=== PATIENT | female | born 1980 ===

== ENCOUNTER 2017-09-16 11:16 | Emergency (ER) | payer OTHER ==
[2017-09-16 12:32] VITALS: BMI 25.0
--- NOTE | 2017-09-16 13:26 | PDOC ---
History of Present Illness <Dani Harrell - Last Filed: 09/16/17 15:17> - History of Present Illness Initial Comments: 09/16/17 13:45 The patient is a 37 year old female, with significant PMH ovarian cysts, who presents to the emergency department for evaluation of vaginal bleed which began 10 days ago. Patient noticed spotting at first but recently has been experiencing heavier bleeding, using 2 to 3 pads a day. Denies clots. Pt denies abd pain/pelvic pain . Patient mentioned she was diagnosed last year in December with bilateral ovarian cysts after having intermittent back pain accompanied with a feeling of lower abdominal heaviness. Pt has report from US done 08/30 that shows 16cm L sided ovarian cyst, and 2cm ovarian cysts on the R. The patient states her last visit to the MEDIATOR (Dr. Jodi Looney) was last week for follow up on her ovarian cysts. Patient also states her last menstrual cycle was July 15. Does not believe she is as she uses condoms. Denies dizziness. The patient denies chest pain, shortness of breath. Denies fever, chills, nausea, vomit, diarrhea and constipation. Denies dysuria, frequency, urgency. Allergies: NKDA Past surgical history: Ovarian Cystectomy Social history: None reported PCP:None reported <Pratibha Whittaker - Last Filed: 09/16/17 15:57> - General Chief Complaint: Vaginal Bleeding Stated Complaint: VAG. BLEEDING Time Seen by Provider: 09/16/17 11:41 Past History <Dani Harrell - Last Filed: 09/16/17 15:17> - Past Medical History COPD: No - Suicide/Smoking/Psychosocial Hx Smoking History: Never smoked Have you smoked in the past 12 months: No Information on smoking cessation initiated: No Hx Alcohol Use: No Drug/Substance Use Hx: No Substance Use Type: None <Pratibha Whittaker - Last Filed: 09/16/17 15:57> - Past Medical History Allergies/Adverse Reactions: Allergies Allergy/AdvReac Type Severity Reaction Status Date / Time No Known Allergies Allergy Verified 09/16/17 12:05 Review of Systems - Review of Systems Comments:: 09/16/17 14:24 GENERAL/CONSTITUTIONAL: No fever or chills. No weakness. HEAD, EYES, EARS, NOSE AND THROAT: No change in vision. No ear pain or discharge. No sore throat. GASTROINTESTINAL: No nausea, vomiting, diarrhea or constipation. GENITOURINARY:+Vaginal Bleed. No dysuria, frequency, or change in urination. CARDIOVASCULAR: No chest pain or shortness of breath. RESPIRATORY: No cough, wheezing, or hemoptysis. MUSCULOSKELETAL: No joint or muscle swelling or pain. No neck or back pain. SKIN: No rash NEUROLOGIC: No loss of consciousess, or change in strength/sensation. ENDOCRINE: No increased thirst. No abnormal weight change. HEMATOLOGIC/LYMPHATIC: No anemia, easy bleeding, or history of blood clots. ALLERGIC/IMMUNOLOGIC: No hives or skin allergy. <Pratibha Whittaker - Last Filed: 09/16/17 15:57> *Physical Exam - Vital Signs Last Vital Signs Temp Pulse Resp BP Pulse Ox 98.7 F 60 16 123/78 100 09/16/17 11:25 09/16/17 11:25 09/16/17 11:25 09/16/17 11:25 09/16/17 11:25 <Dani Harrell - Last Filed: 09/16/17 15:17> - Vital Signs Last Vital Signs Temp Pulse Resp BP Pulse Ox 98.7 F 60 16 123/78 100 09/16/17 11:25 09/16/17 11:25 09/16/17 11:25 09/16/17 11:25 09/16/17 11:25 - Physical Exam Comments: 09/16/17 14:25 GENERAL: Awake, alert, and fully oriented, in no acute distress EYES: PERRLA, EOMI, sclera anicteric, conjunctiva clear ENT: Oropharynx clear without exudates. Moist mucosa LUNGS: Breath sounds equal, clear to auscultation bilaterally. No wheezes, and no crackles HEART: Regular rate and rhythm, normal S1 and S2, no murmurs, rubs or gallops ABDOMEN: Soft, nontender, normoactive bowel sounds. No guarding, no rebound. No masses : Normal external genitalia, +dark red blood in vault with no active bleeding from cervix. Os closed. Mild R adnexal ttp, no midline or L adnexal ttp. No CMT EXTREMITIES: Normal range of motion, no edema. No clubbing or cyanosis. No cords, erythema, or tenderness NEUROLOGICAL: Normal speech, cranial nerves intact, 5/5 strength in all 4 extremities, normal sensation to light touch in all 4 extremities, normal gait SKIN: Warm, Dry, normal turgor, no rashes or lesions noted. <Pratibha Whittaker - Last Filed: 09/16/17 15:57> ED Treatment Course - LABORATORY CBC & Chemistry Diagram: 09/16/17 01:24 09/16/17 01:24 - ADDITIONAL ORDERS Additional order review: Laboratory Results 09/16/17 09/16/17 09/16/17 13:55 01:24 01:24 Sodium 141 Potassium 4.1 Chloride 108 H Carbon Dioxide 27 Anion Gap 6 L BUN 12 Creatinine 0.6 Creat Clearance w eGFR > 60 Random Glucose 84 Calcium 9.1 Total Bilirubin 0.4 AST 15 ALT 16 Alkaline Phosphatase 59 Total Protein 7.1 Albumin 3.8 Urine HCG, Qual Negative Blood Type O POSITIVE Antibody Screen Negative 09/16/17 01:24 RBC 4.18 MCV 91.3 MCHC 33.3 RDW 12.9 MPV 9.6 Neutrophils % 70.4 Lymphocytes % 20.0 Monocytes % 7.8 Eosinophils % 1.2 Basophils % 0.6 <Dani Harrell - Last Filed: 09/16/17 15:17> - LABORATORY CBC & Chemistry Diagram: 09/16/17 01:24 09/16/17 01:24 <Pratibha Whittaker - Last Filed: 09/16/17 15:57> Medical Decision Making - Medical Decision Making 09/16/17 15:18 Dr. Whittaker discussed patient's case with Dr. Looney on the phone <Dani Harrell - Last Filed: 09/16/17 15:17> - Medical Decision Making 09/16/17 14:29 37yo F with hx ovarian cysts presents to the ED with 10 days of vaginal bleeding. Vitals wnl. Exam with mild L adnexal ttp. Likely DUB, however will check UPT and TVUS in light of known large L adnexal cyst. Will also check labs to make sure pt is not anemic. 09/16/17 15:48 Labs wnl TVUS with persistent large L sided ovarian cyst, a bit smaller today @ 14cms. Pt continues to report no pain Mild period like bleeding while in the ED Case discussed with her MEDIATOR Dr. Looney, who recommends that if pt is not heavily bleeding or in severe pain, she will need outpt f/u for surgical removal of cyst Pt aware that she needs surgery and has appt scheduled for 09/26 Advised pt to try to get appointment pushed up to the next week Also instructed pt to seek medical attention immediately if she has sudden severe lower abd pain, jan on the L side where her large cyst in Also instructed pt to seek medical attention immediately if she soaks more than 2 pads/hr for greater than 2 hrs Pt expresses understanding Requests DC home I discussed the physical exam findings, ancillary test results and final diagnoses with the patient. I answered all of the patient's questions. The patient was satisfied with the care received and felt comfortable with the discharge plan and treatment plan. The patient will call their primary care physician within 24 hours to arrange follow-up and will return to the Emergency Department with any new, persistent or worsening symptoms. <Pratibha Whittaker - Last Filed: 09/16/17 15:57> *DC/Admit/Observation/Transfer <Dani Harrell - Last Filed: 09/16/17 15:17> - Discharge Dispostion Decision to Admit order: No - Attestations Physician Attestion: 09/16/17 15:57 I, Dr. Pratibha Whittaker MD, attest that this document has been prepared under my direction and personally reviewed by me in its entirety. I further attest, that it accurately reflects all work, treatment, procedures and medical decision -making performed by me. <Pratibha Whittaker - Last Filed: 09/16/17 15:57> Diagnosis at time of Disposition: Vaginal bleeding, abnormal, Ovarian cyst - Discharge Dispostion Disposition: HOME Condition at time of disposition: Stable - Patient Instructions Printed Discharge Instructions: DI for Vaginal Bleeding Additional Instructions: Follow up with your MEDIATOR doctor within 1 week. Try to have your appointment that you have scheduled for 09/26 pushed up sooner. Seek medical attention immediately if you have any sudden lower abdominal pain, especially on the left as this may be ovarian torsion. Ovarian torsion is a very dangerous condition that could result in the loss of your ovary and infertility. Also, seek medical attention if your soak through more than 2 pads per hour for greater than 2 hours Return to the emergency department if you have any new, worsening, or concerning symptoms.
[2017-09-16 13:33] LABS: BASO % 0.6 % (0-2.0); EOS % 1.2 % (0-4.5); HEMATOCRIT 38.1 % (32.4-45.2); HEMOGLOBIN 12.7 GM/dL (10.7-15.3); MCH 30.4 pg (25.7-33.7); MCHC 33.3 g/dl (32.0-36.0); MEAN CELL VOLUME 91.3 fl (80-96); MEAN PLT VOLUME 9.6 fl (7.5-11.1); MONO % 7.8 % (3.8-10.2); NEUT % 70.4 % (42.8-82.8); PLATELET COUNT 185 K/MM3 (134-434); RBC 4.18 M/mm3 (3.60-5.2); RDW 12.9 % (11.6-15.6); WHITE BLOOD COUNT 5.9 K/mm3 (4.0-10.0)
[2017-09-16 13:57] LABS: ALBUMIN 3.8 g/dl (3.4-5.0); ALK PHOS 59 U/L (45-117); ANION GAP 6 (8-16); BILIRUBIN,TOTAL 0.4 mg/dL (0.2-1.0); BLOOD UREA NITROGEN 12 mg/dL (7-18); CALCIUM 9.1 mg/dL (8.5-10.1); CHLORIDE 108 mmol/L (98-107); CO2 27 mmol/L (21-32); CREATININE 0.6 mg/dL (0.55-1.02); GLUCOSE,RANDOM 84 mg/dL (74-106); POTASSIUM 4.1 mmol/L (3.5-5.1); SGOT/AST 15 U/L (15-37); SGPT/ALT 16 U/L (12-78); SODIUM 141 mmol/L (136-145); TOT PROT 7.1 g/dl (6.4-8.2)
[2017-09-16 17:04] VITALS: BP 124/78; PULSE 71; TEMP 98.4
== END 2017-09-16 17:00 | disposition home or self-care (01) ==
LOC: JER 11:16
DX: N93.8 Other specified abnormal uterine and vaginal bleeding (principal); N83.202 Unspecified ovarian cyst, left side; N83.201 Unspecified ovarian cyst, right side
CPT/HCPCS: 36415; 76830-TC; 80053; 84703; 85025; 86850; 86900; 86901; 99282-25

== ENCOUNTER 2017-10-18 05:14 | Day surgery (SDC) | payer OTHER ==
[2017-10-16 15:08] VITALS: BMI 25.2
[2017-10-18] MEDS ORDERED: ePHEDrine SULFATE 50 MG/1 ML AMPULE ONE (07:20)
[2017-10-18] MEDS ORDERED: fentaNYL CITRATE 250 MCG/5 ML VIAL ONE (07:20)
[2017-10-18] MEDS ORDERED: MIDAZOLAM HCL 2 MG/2 ML SINGLE DOSE VIAL ONE (07:21)
[2017-10-18] MEDS ORDERED: PROPOFOL 20 ML ONE ×4 (07:21)
[2017-10-18] MEDS ORDERED: SUCCINYLCHOLINE CHLORIDE 200 MG/10 ML VIAL ONE (07:21)
[2017-10-18] MEDS ORDERED: ROCURONIUM BROMIDE 50 MG/5 ML VIAL ONE (07:23)
[2017-10-18] MEDS ORDERED: ceFAZolin SODIUM 1 GM VIAL ONE (07:26)
[2017-10-18] MEDS ORDERED: DEXAMETHASONE SOD PHOSPHATE 4 MG/1 ML VIAL ONE (07:26)
[2017-10-18] MEDS ORDERED: KETOROLAC TROMETHAMINE 30 MG/1 ML VIAL ONE (07:26)
[2017-10-18] MEDS ORDERED: BUPIVACAINE HCL/PF 0.25% (2.5MG/ML) 10 ML VIAL ONE (07:47)
[2017-10-18] MEDS ORDERED: IBUPROFEN 600 MG TABLET (FP) PO PRN (07:58)
[2017-10-18] MEDS ORDERED: ACETAMINOPHEN 325 MG TABLET (FP) PO PRN (07:58)
--- NOTE | 2017-10-18 07:58 | HP ---
History & Physical Update - History History: No Change - Physical Physical: No Change - Assessment Assessment: No Change - Plan Plan: No Change (No change in HP)
[2017-10-18] MEDS ORDERED: LACTATED RINGERS SOLUTION 1,000 ML IV SCH (08:00)
[2017-10-18] MEDS ORDERED: ceFAZolin SODIUM 1 GM VIAL IVPB ONE (08:15)
[2017-10-18] MEDS ORDERED: MICROFIBRILLAR COLLAGEN 1 GM EACH ONE (09:23)
[2017-10-18] MEDS ORDERED: MICROFIBRILLAR COLLAGEN 1 GM EACH NR ONE (09:27)
--- NOTE | 2017-10-18 10:09 | OP ---
Operative Note - Note: Operative Date: 10/18/17 Pre-Operative Diagnosis: Left ovarian Cyst. Abdoman Pain Operation: Laparoscopic Ovarian Cystectomy. 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 16 cm ovarian cyst with 1500 cc clear fluid. ca 125 normal preop. enterolysis performed omentum stuck to abdominal wll Estimated Blood Loss (mls): 100 Operative Report Dictated: Yes
[2017-10-18] MEDS ORDERED: ONDANSETRON 4 MG/2 ML VIAL IVPUSH ONE (10:30)
[2017-10-18] MEDS ORDERED: ONDANSETRON 4 MG/2 ML VIAL ONE (10:40)
--- NOTE | 2017-10-18 10:45 | SURG ---
Surgery Operations Administrative Assistant Note Operations Administrative Assistant: Deanna Carr PA-C Date of Service: 10/18/17 Diagnosis: Left ovarian Cyst. Abdoman Pain Procedure: Laparoscopic Ovarian Cystectomy. ENterolysis I was present for the entirety of the operative procedure. For further detail, please refer to operative report. Visit type - Case Type Case Type: Scheduled - Emergency Emergency Visit: No - New patient This patient is new to me today: Yes Date on this admission: 10/18/17
[2017-10-18 11:25] LABS: BASO % 0.2 % (0-2.0); EOS % 0.2 % (0-4.5); HEMOGLOBIN 10.9 GM/dL (10.7-15.3); LYMPH % 9.6 % (8-40); MCH 30.9 pg (25.7-33.7); MEAN CELL VOLUME 90.8 fl (80-96); MEAN PLT VOLUME 9.9 fl (7.5-11.1); MONO % 3.4 % (3.8-10.2); NEUT % 86.6 % (42.8-82.8); PLATELET COUNT 154 K/MM3 (134-434); RBC 3.53 M/mm3 (3.60-5.2); RDW 13.3 % (11.6-15.6); WHITE BLOOD COUNT 10.5 K/mm3 (4.0-10.0)
[2017-10-18] MEDS ORDERED: ONDANSETRON 4 MG/2 ML VIAL IVPUSH PRN (12:14)
[2017-10-18] MEDS ORDERED: oxyCODONE HCL 5 MG TABLET PO PRN ×2 (12:14)
[2017-10-18 12:39] VITALS: TEMP 98.1
[2017-10-18 14:33] LABS: BASO % 0.1 % (0-2.0); HEMATOCRIT 33.6 % (32.4-45.2); HEMOGLOBIN 11.2 GM/dL (10.7-15.3); LYMPH % 4.3 % (8-40); MCH 30.4 pg (25.7-33.7); MCHC 33.4 g/dl (32.0-36.0); MEAN PLT VOLUME 10.3 fl (7.5-11.1); MONO % 0.9 % (3.8-10.2); NEUT % 94.7 % (42.8-82.8); PLATELET COUNT 175 K/MM3 (134-434); RBC 3.69 M/mm3 (3.60-5.2); RDW 13.4 % (11.6-15.6); WHITE BLOOD COUNT 13.1 K/mm3 (4.0-10.0)
--- NOTE | 2017-10-18 14:40 | OP ---
DATE OF OPERATION: 10/18/2017 PREOPERATIVE DIAGNOSES: Left ovarian cyst and abdominal pain. OPERATION: Laparoscopic ovarian cystectomy and enterolysis with biopsy of left ovary submitted to Pathology. FINDINGS: Possibly a cystoadenoma, papillary serous neoplasia, not known to be borderline tumor or cancer; also, left ovarian cyst, about 16 cm with 1500 mL of fluid removed. POSTOPERATIVE DIAGNOSES: Left ovarian cyst and abdominal pain. SURGEON: Georgie Kendall MD SUPERVISOR ELECTRONICS INSPECTION: KIRILL Torres ANESTHESIA: General. ESTIMATED BLOOD LOSS: 100 mL PROCEDURE: Patient was taken to the operating room, placed in dorsal lithotomy position, prepped and draped in the usual sterile fashion. Mayo catheter was placed into the bladder. Attention was then drawn to the umbilicus where a 5-mm umbilical incision was made. Veress needle was inserted into the cavity. Approximately 3-4 L of CO2 was insufflated in the cavity. Veress needle was then removed, and a 5-mm trocar was then inserted. Laparoscope and camera attached. Visualization revealed a large, 16- to 17-cm left ovarian cyst. Two trocars were placed on the left and right side under direct visualization after incisions had been made, 5-mm incisions made, and 5-mm trocars were then inserted. The needle was then inserted into the left ovary, and approximately 1500 mL of fluid was removed. After fluid had been drained, the LigaSure was then used to cut the ovary, and the cyst wall was then removed using sharp and blunt technique and further cut with the EndoShears and submitted to Pathology. Another cyst was then entered at the bottom of the base of the left ovary near the uterus and found to have papillary material coming out of the cyst. Material was then submitted to Pathology to rule out ovarian cancer. 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 The ovary was removed from the portion of the cul-de-sac. That portion of the cul-de-sac was bleeding. EndoShears were then used to tamponade and coagulate that area. Surgicel was placed in the area to further stop bleeding as well as was also placed. Hemostasis was achieved. The specimens were removed using an 11-mm trocar. The trocar on the right was extended and an 11-mm trocar was then inserted and Endo Catch was used to remove all the specimen. Hemostasis was achieved after irrigation and suction had been done. All instruments were removed after the Boom-Collin was then used to close off the 11-mm port on the right side. Incisions were then all closed using 4-0 Biosyn suture in subcuticular fashion. Wound was washed and dressed. Mayo catheter was removed. Patient tolerated the procedure well and was taken to recovery room in stable condition. ESTIMATED BLOOD LOSS: 100 mL Fahad [id number]
[2017-10-18 15:02] VITALS: BP 114/66; PULSE 61
[2017-10-18 15:42] LABS: PLATELET ESTIMATE ADEQUATE
--- NOTE | 2017-10-19 17:21 | PATH ---
Surgical Pathology Report Patient Name: DARIO OSUNA [facility]. Rec. #: [id number] /Age/Gender: 1980 (Age: 37) / F Account: [id number] Location: AMBULATORY SURG Taken: 10/18/2017 Received: 10/18/2017 Reported: 10/19/2017 Physicians: Georgie Kendall M.D. Specimen(s) Received A: PORTION OF OVARY FOR FROZEN B: PORTION OF OVARY FOR FROZEN C: OVARIAN CYST Clinical History Ovarian cyst Intraoperative Consult Diagnosis A. Portion of ovary, frozen section: Serous papillary neoplasm with epithelial proliferation. Defer to permanent sections. B. Portion of ovary, frozen section: Serous papillary neoplasm with epithelial proliferation. Defer to permanent sections. Frank Mchugh M.D., 10/18/17 Final Diagnosis A-C. 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 Electronically Signed Selina Ramirez M.D. Gross Description A. Received fresh labeled "portion of ovarian cyst for frozen," is a 1.0 x 0.7 x 0.4 cm portion of walls soft tissue. The specimen is bisected and entirely submitted for frozen section. The frozen section residue is entirely submitted in one cassette. B. Received fresh labeled "portion of ovary for frozen," is a 3.0 x 1.0 x 0.3 cm aggregate of walls red soft tissue fragments. The specimen is entirely submitted for frozen section. The frozen section residue is entirely submitted in one cassette. C. Received fresh labeled "ovarian cyst," is a 7.0 x 3.2 x 2.0 cm focally disrupted cyst. The outer surface of the cyst is walls and smooth. There is no fluid present within the lumen. There is red serous fluid present within the container. The inner lining is walls-pink and smooth. No excrescences are identified. Tractor Operator Helper sections are submitted in 5 cassettes. /10/18/2017 [facility]10/18/2017
== END 2017-10-18 15:02 | disposition home or self-care (01) ==
LOC: JASUSAT 05:14
PROVIDERS: ATTEND Obstetrics & Gynecology
PROC: 0UB14ZZ Excision of Left Ovary, Percutaneous Endoscopic Approach (ICD-10-PCS; principal; 2017-10-18 07:30)
DX: N83.202 Unspecified ovarian cyst, left side (principal)
CPT/HCPCS: 36415; 84703; 85025; 88305-TC; 88331-TC; 94760

== ENCOUNTER → 2018-01-26 | Emergency (ER) | payer OTHER ==
[~2018-01-26] MED LIST: ERYTHROMYCIN 0.5% OPHTHALMIC OINTMENT 3.5 GM TUBE ONE
[2018-01-26 15:19] VITALS: BP 140/82; PULSE 82; TEMP 97; BMI 24.9
== END | disposition left against medical advice (07) ==
LOC: JER 14:57
DX: Z53.21 Procedure and treatment not carried out due to patient leaving prior to being seen by health care provider (principal)
CPT/HCPCS: 99282-25

== ENCOUNTER 2018-03-19 16:14 | Emergency (ER) | payer OTHER ==
--- NOTE | 2018-03-19 16:25 | PDOC ---
Rapid Medical Evaluation Medical Evaluation: Allergies Allergy/AdvReac Type Severity Reaction Status Date / Time No Known Allergies Allergy Verified 01/26/18 15:07 I have performed a brief in-person evaluation of this patient. The patient presents with a chief complaint of: Hx of ovarian cysts, L ovarian cystectomy 10/2017, C/O lower abdominal pain and diarrhea from yesterday; also noted drop of blood in stools today; denies fever, n/v, urinary complaints Pertinent physical exam findings: In NAD, abdomen soft, NT I have ordered the following: Labs The patient will proceed to the ED for further evaluation. 03/19/18 16:19
[2018-03-19 16:28] VITALS: BP 118/81; PULSE 69; TEMP 97.8; BMI 25.7
[2018-03-19 16:47] LABS: BASO % 0.7 % (0-2.0); EOS % 1.3 % (0-4.5); HEMATOCRIT 36.4 % (32.4-45.2); HEMOGLOBIN 12.6 GM/dL (10.7-15.3); LYMPH % 27.8 % (8-40); MCHC 34.5 g/dl (32.0-36.0); MEAN CELL VOLUME 86.9 fl (80-96); MEAN PLT VOLUME 9.1 fl (7.5-11.1); MONO % 8.5 % (3.8-10.2); NEUT % 61.7 % (42.8-82.8); PLATELET COUNT 253 K/MM3 (134-434); RBC 4.18 M/mm3 (3.60-5.2); WHITE BLOOD COUNT 4.9 K/mm3 (4.0-10.0)
[2018-03-19 17:21] LABS: HCG,QUALITATIVE URINE Negative
[2018-03-19 17:22] LABS: ANION GAP 4 MMOL/L (8-16); BLOOD UREA NITROGEN 10 mg/dL (7-18); CALCIUM 9.1 mg/dL (8.5-10.1); CHLORIDE 108 mmol/L (98-107); CO2 27 mmol/L (21-32); CREATININE 0.6 mg/dL (0.55-1.3); GLUCOSE,RANDOM 91 mg/dL (74-106); POTASSIUM 4.1 mmol/L (3.5-5.1); SODIUM 139 mmol/L (136-145)
--- NOTE | 2018-03-19 19:42 | PDOC ---
History of Present Illness - General Chief Complaint: Pain, Acute Stated Complaint: PAIN Time Seen by Provider: 03/19/18 19:38 - History of Present Illness Initial Comments: 03/19/18 19:40 37 yo F with h/o left ovarian cystectomy ( 10/20- 16 cm), Right ovarian cystectomy (2004,2006) who p/w LLQ abdominal and left sided flank pain. Patient reports 2 days of "pulling," unremitting flank pain, and LLQ abdominal pain. No identifiable triggers or alleviators. Not relived with Tylenol x 2 days. Also endorses increased urinary frequency x 2 months. H/o borderline ovarian tumor seen on pathology (10/2017). Patient denies weight loss, night sweats, cough, wheezing, orthopnea, PND, leg pain/swelling, palpitations, N/V, F,C, CP, SOB, urinary complaints, diarrhea, vaginal bleeding/discharge, dyspareunia, pelvic pain, constipation, hematuria, BPR, lightheadedness, weakness, sensory changes. PMHx: as noted above ROS: as noted SHx: Smoking cessation x 2 months, 1/2 ppd x 15 years. Denies IVDA. Social Etoh. . Allergies: NKDA Drilling Inspector: Faiza Past History - Past Medical History Allergies/Adverse Reactions: Allergies Allergy/AdvReac Type Severity Reaction Status Date / Time No Known Allergies Allergy Verified 03/19/18 16:20 Home Medications: Ambulatory Orders NK [No Known Home Medication] 01/26/18 Anemia: No Asthma: No Cancer: No Cardiac Disorders: No CVA: No COPD: No CHF: No Dementia: No Diabetes: No GI Disorders: No Disorders: No HTN: No Hypercholesterolemia: No Liver Disease: No Seizures: No Thyroid Disease: No Other medical history: OVARIAN CYST (EXTREMELY ENLARGED) - Surgical History Appendectomy: Yes - Suicide/Smoking/Psychosocial Hx Smoking History: Former smoker Have you smoked in the past 12 months: Yes Number of Cigarettes Smoked Daily: 10 If you are a former smoker, when did you quit?: 2 MONTHS AGO Information on smoking cessation initiated: No 'Breaking Loose' booklet given: 10/16/17 Hx Alcohol Use: No Drug/Substance Use Hx: No Substance Use Type: Alcohol Hx Substance Use Treatment: No Review of Systems - Review of Systems Comments:: 03/19/18 19:41 GENERAL/CONSTITUTIONAL: No fever or chills. No weakness. HEAD, EYES, EARS, NOSE AND THROAT: No change in vision. No ear pain or discharge. No sore throat. CARDIOVASCULAR: No chest pain or shortness of breath RESPIRATORY: No cough, wheezing, or hemoptysis. GASTROINTESTINAL:+ abdominal pain. No nausea, vomiting, diarrhea or constipation. GENITOURINARY: No dysuria, frequency, or change in urination. MUSCULOSKELETAL: No joint or muscle swelling or pain. No neck or back pain. SKIN: No rash NEUROLOGIC: No headache, vertigo, loss of consciousness, or change in strength/ sensation. ENDOCRINE: No increased thirst. No abnormal weight change HEMATOLOGIC/LYMPHATIC: No anemia, easy bleeding, or history of blood clots. ALLERGIC/IMMUNOLOGIC: No hives or skin allergy. *Physical Exam - Vital Signs Last Vital Signs Temp Pulse Resp BP Pulse Ox 97.8 F 69 20 118/81 99 03/19/18 16:21 03/19/18 16:21 03/19/18 16:21 03/19/18 16:21 03/19/18 16:21 - Physical Exam Comments: 03/19/18 19:41 GENERAL: Awake, alert, and fully oriented, in no acute distress HEAD: No signs of trauma, normocephalic, atraumatic EYES: PERRLA, EOMI, sclera anicteric, conjunctiva clear ENT: Hearing grossly normal, nares patent, oropharynx clear without exudates. Moist mucosa NECK: Normal ROM, supple, no lymphadenopathy, JVD, or masses LUNGS: No distress, speaks full sentences, clear to auscultation bilaterally HEART: Regular rate and rhythm, normal S1 and S2, no murmurs, rubs or gallops, peripheral pulses normal and equal bilaterally. ABDOMEN: + LLQ abdominal ttp, and diffuse lower abdominal distension. + Left flank ttp. Soft, normoactive bowel sounds. No guarding, no rebound. No masses. GENITOURINARY: Nml appearing external genitalia, absent blood or discharge in vaginal vault. Neg adenexal ttp, and neg CMT on BM. Cervical os closed. EXTREMITIES : Normal inspection, Normal range of motion, no edema. No clubbing or cyanosis. NEUROLOGICAL: Cranial nerves II through XII grossly intact. Normal speech, normal gait, no focal sensorimotor deficits SKIN: Warm, Dry, normal turgor, no rashes or lesions noted Moderate Sedation - Procedure Monitoring Vital Signs: Procedure Monitoring Vital Signs Temperature 97.8 F 03/19/18 16:21 Pulse Rate 69 03/19/18 16:21 Respiratory Rate 20 03/19/18 16:21 Blood Pressure 118/81 03/19/18 16:21 O2 Sat by Pulse Oximetry (%) 99 03/19/18 16:21 ED Treatment Course - LABORATORY CBC & Chemistry Diagram: 03/19/18 16:35 03/19/18 16:35 - ADDITIONAL ORDERS Additional order review: Laboratory Results 03/19/18 03/19/18 16:35 16:35 Sodium 139 Potassium 4.1 Chloride 108 H Carbon Dioxide 27 Anion Gap 4 L BUN 10 Creatinine 0.6 Creat Clearance w eGFR > 60 Random Glucose 91 Calcium 9.1 Urine HCG, Qual Negative 03/19/18 16:35 RBC 4.18 MCV 86.9 MCHC 34.5 RDW 14.0 MPV 9.1 D Neutrophils % 61.7 D Lymphocytes % 27.8 D Monocytes % 8.5 D Eosinophils % 1.3 D Basophils % 0.7 D - RADIOLOGY Radiology Studies Ordered: 03/19/18 23:31 EXAM#: TYPE/EXAM: RESULT: [id number] US/TRANSVAGINAL ULTRASOUND US Transvaginal ultrasound Clinical information: left lower quadrant pain, evaluate for torsion In comparison to a prior ultrasound exam of 09/16/2017 interval development of multiple internal echoes is seen within a previously described approximately 15 x 14 x 12 cm left ovarian cyst. The cyst demonstrates no gross interval change in overall size. There is no Doppler evidence of left ovarian torsion. The right ovary could not be definitely visualized. The uterus also could not be adequately visualized due to the previously described very large left adnexal cyst. There is no obvious free intraperitoneal fluid. Impression: In comparison to a prior exam of 09/16/2017 interval development of extensive intraluminal echogenicity is seen within a previously identified 15 x 14 x 12 cm left ovarian cyst. This increased intraluminal echogenicity may represent hemorrhage and/or debris. No Doppler evidence of left ovarian torsion. Reported By: Errol Parada MD 03/19/182255 Mick Rodrigues Technologist: Jo Ann Zhu Transcribed Date/Time: 03/19/182255 Personal Fitness Manager: Errol Parada Medical Decision Making - Medical Decision Making 03/19/18 19:43 37 yo F with h/o left ovarian cystectomy ( 10/20- 16 cm), Right ovarian cystectomy (2004,2006) who p/w LLQ abdominal and left sided flank pain x 2 days. VSS, AF, A&Ox3. + LLQ abdominal ttp, and lower abdominal distension. R/o ovarian torsion. Will consider ovarian cystic rupture, , cystitis, obstructive uropathy/nephrolithaisis. Although low suspicion GI pathology colitis, diverticulitis, appendicitis. Low suspicion pyeloneprhtitis. Will provide analgesia and reassess. ED Course: 03/19/18 21:10 CBC,CMP: Unremarkable UA: Neg HCG: Neg 03/19/18 23:32 TVUS: Impression: In comparison to a prior exam of 09/16/2017 interval development of extensive intraluminal echogenicity is seen within a previously identified 15 x 14 x 12 cm left ovarian cyst. This increased intraluminal echogenicity may represent hemorrhage and/or debris. No Doppler evidence of left ovarian torsion. Patient stable pain improved. Patient advised to f/u with obstetrics gynecology physician/Onc and provided multiple physician numbers. She has attempted contact with multiple physicians to date. Stable for d/c with return precautions. *DC/Admit/Observation/Transfer Diagnosis at time of Disposition: Ovarian cyst Qualifiers: Laterality: left Qualified Code(s): N83.202 - Unspecified ovarian cyst, left side Abdominal pain Qualifiers: Abdominal location: left lower quadrant Qualified Code(s): R10.32 - Left lower quadrant pain - Discharge Dispostion Condition at time of disposition: Stable Decision to Admit order: No - Referrals - Patient Instructions Printed Discharge Instructions: DI for Abdominal Pain-Adult Additional Instructions: Please return to the emergency department with any new or worsening symptoms or concerns. Please follow up with your primary care physician within [address] Bellamy [phone] for gynecology/oncology appointment [address], [place]. Return with worsening abdominal pain, fever/chills, or other concerning symptoms. - Post Discharge Activity - Attestations Physician Attestion: 03/19/18 19:42 I attest to the information provided in this note.
[2018-03-19 21:45] LABS: URINE APPEARANCE CLEAR; URINE BILIRUBIN NEGATIVE (<2.0 mg/dL); URINE COLOR LTYELLOW; URINE GLUCOSE (UA) NEGATIVE (NEGATIVE); URINE KETONE NEGATIVE (NEGATIVE); URINE LEUK ESTERASE NEGATIVE (NEGATIVE); URINE NITRITE NEGATIVE (NEGATIVE); URINE PROTEIN NEGATIVE (NEGATIVE); URINE UROBILINOGEN NEGATIVE mg/dL (0.2-1.0)
--- NOTE | 2018-03-19 23:18 | PDOC ---
Attending Attestation - HPI HPI: 03/19/18 23:20 The patient is a 37 year old female, with a significant past medical history of left ovarian cystectomy (10/20-16 cm), Right ovarian cystectomy (2004,2006), who presents to the emergency department with, 2 days of LLQ pain radiating to the left flank. Patient also endorses a week of abdominal distention and urinary frequency. She notes her symptoms are similar to her previous ovarian cysts. She denies recent fevers, chills, headache or dizziness. She denies recent nausea, vomit, diarrhea or constipation. She denies recent chest pain or shortness of breath. Allergies: NKDA INSURANCE COLLECTOR: Dr. Kendall <Vivi Ricketts - Last Filed: 03/19/18 23:19> - Resident Resident Name: Mick Rodrigues - ED Attending Attestation I have performed the following: I have examined & evaluated the patient, The case was reviewed & discussed with the resident, I agree w/resident's findings & plan - Physicial Exam PE: 03/19/18 23:29 GENERAL: Awake, in no acute distress HEAD: No signs of trauma EYES: ENT:clear without exudates. Moist mucosa NECK: Normal ROM, LUNGS:. Normal work of breathing. HEART: Regular rate and rhythm, ABDOMEN: Soft, distended left lower quadrant : Please see resident note CHEST WALL: EXTREMITIES:. No erythema, or tenderness NEUROLOGICAL: Alert, SKIN: Warm, Dry - Medical Decision Making 03/19/18 23:30 37-year-old female with pelvic pain and bloating Ultrasound confirmed a left ovarian mass/cyst with changes on ultrasound consistent with bleeding or degradation Patient has a follow-up scheduled with [facility]ANCE [facility] oncology She has agreed to return to force Impression pelvic mass <Agnes Christine - Last Filed: 03/19/18 23:32> Attestations - Attestations 03/19/18 23:20 Documentation prepared by Vivi Ricketts, acting as medical collections specialist for Agnes Christine DO. <Vivi Ricketts - Last Filed: 03/19/18 23:19>
== END 2018-03-20 00:22 | disposition home or self-care (01) ==
LOC: JER 16:14
DX: N83.202 Unspecified ovarian cyst, left side (principal)
CPT/HCPCS: 36415; 76830-TC; 80048; 81003; 84703; 85025; 87491; 87591; 99283-25